=== PATIENT | male | born 1995 | race Asian ===

== ENCOUNTER 2017-10-07 00:35 | Emergency (ER) | payer OTHER ==
[2017-10-07] MEDS ORDERED: NS 1,000 ML IV ONE (00:40)
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
[2017-10-07 01:10] LABS: PLATELET COUNT 371 10^3/uL (150-400)
[2017-10-07 02:22] VITALS: BP 133/82
== END 2017-10-07 02:22 | disposition home or self-care (01) ==
LOC: EDUNIT#
PROC: 0HQ0XZZ Repair Scalp Skin, External Approach (ICD-10-PCS; principal; 2017-10-07)
DX: S01.01XA Laceration without foreign body of scalp, initial encounter (principal); F17.200 Nicotine dependence, unspecified, uncomplicated; Y04.0XXA Assault by unarmed brawl or fight, initial encounter
CPT/HCPCS: G0480